=== PATIENT | female | born 1975 | race Caucasian/White ===

== ENCOUNTER → 2019-08-02 | Outpatient (CLI) | payer OTHER ==
[2014-11-02 11:20] VITALS: BP 168/84
[~2019-08-02] MED LIST: HYDR-3165 PO
--- NOTE | 2019-08-05 18:23 | RAD ---
BILATERAL SCREENING MAMMOGRAM History: Routine screening. Comparison: None. This exam is a baseline.. Technique: Routine bilateral digital mammogram views were obtained. Findings: Breast Tissue Density B : There are scattered areas of fibroglandular density. There are no dominant masses, suspicious microcalcifications, or architectural distortion. Asymmetry involving the central right breast on CC projection is present. Focal asymmetry involving the left upper central breast anteriorly probably represents summation of breast parenchyma also. IMPRESSION: Spot compression imaging bilaterally is recommended. Ultrasound may be needed. BI-RADS Category 0: Incomplete: Need additional imaging evaluation. The images were reviewed with computer aided detection. Patient information is entered into the reminder system with a target due date for the next screening mammogram. Mammography is the most sensitive method for finding small breast cancers, but it does not detect them all and is not a substitute for careful clinical examination. A negative mammogram does not negate a clinically suspicious finding and should not result in delay in biopsying a clinically suspicious abnormality. "Our facility is accredited by the [employer] Mammography [employer]." Electronically signed by: Zak Estrella MD (08/05/2019 6:20 PM) [id number]
== END ==
LOC: MAMMO 10:25
PROVIDERS: ATTEND Nurse Practitioner Family
DX: Z12.31 Encounter for screening mammogram for malignant neoplasm of breast (principal)
CPT/HCPCS: 77067

== ENCOUNTER → 2019-11-15 | Outpatient (CLI) | payer OTHER ==
[2014-11-02 11:20] VITALS: BP 168/84
--- NOTE | 2019-11-15 15:54 | RAD ---
DATE: 11/15/2019 2:05 PM EXAM: DIGITAL DIAGNOSTIC BILATERAL HISTORY: Baseline bilateral screening mammogram recalled for asymmetries. COMPARISON: 08/02/2019 bilateral mammograms TECHNIQUE: Full-field bilateral ML views were obtained along with spot compression views in the CC and MLO projections. This study was interpreted with the benefit of Computerized Aided Detection (CAD). FINDINGS: Breast Density: SCATTERED The breast parenchyma shows scattered fibroglandular densities. Breast parenchyma level B The asymmetries changed configuration in a pattern compatible with benign overlap of fibroglandular tissue. No suspicious masses, microcalcifications or architectural distortion is present to suggest malignancy in either breast. The visualized axillae are unremarkable. IMPRESSION: No mammographic evidence of malignancy. BI-RADS CATEGORY: 1 NEGATIVE RECOMMENDED FOLLOW-UP: 12M 12 MONTH FOLLOW-UP Annual screening mammography is recommended, unless clinically indicated sooner based on symptoms or change in physical exam. PQRS compliance statement: Patient information was entered into a reminder system with a target due date 08/02/2020 for the next mammogram. Mammography is a sensitive method for finding small breast cancers, but it does not detect them all and is not a substitute for careful clinical examination. A negative mammogram does not negate a clinically suspicious finding and should not result in delay in biopsying a clinically suspicious abnormality. "Our facility is accredited by the [employer] Mammography [employer]."
== END | disposition home or self-care (01) ==
LOC: MAMMO 13:58
PROVIDERS: ATTEND Nurse Practitioner Family
DX: R92.2 Inconclusive mammogram (principal)
CPT/HCPCS: 77066